=== PATIENT | female | born 1965 | race Caucasian/White ===

== ENCOUNTER 2017-04-02 17:06 | Emergency (ER) | payer OTHER ==
[~2017-04-02] VITALS: Ht 170.2 cm; Wt 83.9 kg
[~2017-04-02 17:06] MED LIST: ACETAMINOPHEN-1 EAC1 PO; AMOXICILLIN 50500 MG PO; AMOXICILLIN875 MG PO; AUGMENTIN 875875 MG PO; BACTRIM DS TAB1 EACH PO; BUTALB-APAP-CA1 EACH PO; CARAFATE 1 GM TA1 G1 PO; CEPHALEXIN 250250 M1 PO; CEPHALEXIN 500500 M3 PO; CIPRO500 MG PO; CIPROFLOXACIN500 M1 PO; CLEOCIN HCL300 MG PO; CLINDAMYCIN HC150 MG PO; DOXYCYCLINE 10100 MG PO; FIORICET 50-301 EACH PO; FLAGYL 250 MG250 MG PO; FLEXERIL PO; HIBICLENS118 ML TOP; HYDROCODONE-AP1 EAC6 PO; IBUPROFEN 600600 M1 PO; IBUPROFEN 800800 M1 PO; IMITREX 25 MG T25 M1 PO; KEFLEX500 M1; KEFLEX500 MG PO; LEVSIN PO; LEXAPRO 10 MG T10 M1 PO; LEXAPRO20 MG PO; MACROBID 100 M100 M1 PO; MEDROLDOSEPACK PO; MIRALAX255 GM PO; NAPROSYN500 M1 PO; NAPROSYN500 MG PO; NEURONTIN 300300 M1 PO; NOHOMEMEDICATIONS; NORCO 5-325 TA1 EAC1 PO; NORCO 5-325 TA1 EACH PO; PERCOCET 7.5-31 EACH PO; PHENAZOPYRIDIN200 M2 PO; PREDNISONE 10 M10 MG; PROMETHAZINE-P118 M1 PO; PROMETHAZINE12.5 M1 PO; PYRIDIUM200 MG PO; ROBAXIN 750 MG750 M1 PO; ROBAXIN500 MG PO; TOPAMAX 25 MG T25 M1 PO; TRAMADOL 50 MG50 MG PO; ULTRAM 50MG TAB50 MG PO; UNICOMPLEX M TA1 TA1 PO; VICOPROFEN 2001 EACH PO; VITAMIN D1000 UNI1; XANAX 1 MG TABLE1 MG PO; ZOFRAN ODT4 MG DISSOLVE; ZOFRAN ODT4 MG PO; ZOFRAN ODT4 MG SUBLING; ZOFRAN4 MG PO; ZOLOFT100 MG; [UNRECOGNIZED DRUG - OTHER] PO
[2017-04-02] MEDS ORDERED: CYMBALTA60 MG PO (17:22)
[2017-04-02 18:00] LABS: HCO3 22.6 mmol/L (22.0-26.0); PCO2 34.7 mmHg (35.0-45.0); PO2 87.4 mmHg (75.0-100.0); pH 7.432 (7.340-7.450)
[2017-04-02 18:01] LABS: ABSOLUTE BASOPHILS 0.1 thou/uL (0.0-0.2); ABSOLUTE EOSINOPHILS 0.2 thou/uL (0.0-0.7); ABSOLUTE LYMPHOCYTES 2.1 thou/uL (0.8-5.3); ABSOLUTE MONOCYTES 0.4 thou/uL (0.0-1.2); ABSOLUTE NEUTROPHILS 5.1 thou/uL (1.6-8.1); BASOPHILS 0.7 %; EOSINOPHILS 3.1 %; HEMATOCRIT 42.4 % (37.0-47.0); HEMOGLOBIN 14.5 gm/dL (12.0-15.0); LYMPHOCYTES 26.1 %; MCH 32.5 pg (26.0-34.0); MCHC 34.2 g/dL (28.0-37.0); MCV 94.9 fL (80.0-100.0); MONOCYTES 5.4 %; NUCLEATED RBCS 0 /100WBC; PLATELET COUNT* 191 thou/uL (150-400); POLYS 64.7 %; RBC 4.47 mil/uL (4.20-5.00); RDW-CV 12.9 % (10.5-14.5); WBC 7.9 thou/uL (4.0-11.0)
[2017-04-02 18:08] LABS: ANION GAP 5 mmol/L (7-16); BUN 14 mg/dL (7-18); CALCIUM 9.5 mg/dL (8.5-10.1); CHLORIDE 105 mmol/L (98-107); CO2 31 mmol/L (21-32); GLUCOSE 93 mg/dL (70-99); SODIUM 141 mmol/L (136-145)
[2017-04-02 18:13] LABS: ALBUMIN 3.4 g/dL (3.4-5.0); ALKALINE PHOSPHATASE 72 U/L (46-116); AMMONIA < 10 umol/L (11-32); SGOT 18 U/L (15-37); SGPT 26 U/L (30-65); TOTAL BILIRUBIN 0.4 mg/dL (<0.1-1.0); TOTAL PROTEIN 6.9 g/dL (6.4-8.2)
[2017-04-02 20:59] VITALS: BP 107/62
== END 2017-04-02 21:00 | disposition home or self-care (01) ==
LOC: M.ERS 17:06
PROVIDERS: Physician Assistant
DX: G43.909 Migraine, unspecified, not intractable, without status migrainosus (principal); F17.210 Nicotine dependence, cigarettes, uncomplicated; Z90.49 Acquired absence of other specified parts of digestive tract; Z90.710 Acquired absence of both cervix and uterus; Z85.841 Personal history of malignant neoplasm of brain; Z88.5 Allergy status to narcotic agent

== ENCOUNTER 2017-05-21 16:01 | Emergency (ER) | payer OTHER ==
[~2017-05-21] VITALS: Ht 175.3 cm; Wt 106.6 kg
[~2017-05-21 16:01] MED LIST changes: +CYMBALTA60 MG PO
[2017-05-21] MEDS ORDERED: COMPAZINE10 MG PO (16:19)
[2017-05-21] MEDS ORDERED: PROPRANOLOL 1010 MG PO (16:19)
[2017-05-21] MEDS ORDERED: NORCO 5-325 TA1 EACH PO (16:19)
[2017-05-21 17:03] LABS: ABSOLUTE BASOPHILS 0.1 thou/uL (0.0-0.2); ABSOLUTE EOSINOPHILS 0.3 thou/uL (0.0-0.7); ABSOLUTE LYMPHOCYTES 2.6 thou/uL (0.8-5.3); ABSOLUTE MONOCYTES 0.4 thou/uL (0.0-1.2); ABSOLUTE NEUTROPHILS 4.7 thou/uL (1.6-8.1); BASOPHILS 0.9 %; EOSINOPHILS 3.5 %; HEMATOCRIT 42.8 % (37.0-47.0); HEMOGLOBIN 14.8 gm/dL (12.0-15.0); LYMPHOCYTES 32.3 %; MCH 32.1 pg (26.0-34.0); MCHC 34.5 g/dL (28.0-37.0); NUCLEATED RBCS 0 /100WBC; PLATELET COUNT* 171 thou/uL (150-400); POLYS 58.3 %; WBC 8.1 thou/uL (4.0-11.0)
[2017-05-21 17:11] LABS: CALCIUM 9.6 mg/dL (8.5-10.1); CREATININE 0.9 mg/dL (0.6-1.3); POTASSIUM 4.8 mmol/L (3.5-5.1)
[2017-05-21 17:16] LABS: ALBUMIN 3.6 g/dL (3.4-5.0); TOTAL BILIRUBIN 0.4 mg/dL (<0.1-1.0); TOTAL PROTEIN 6.8 g/dL (6.4-8.2)
[2017-05-21] MEDS ORDERED: CLEOCIN HCL150 M1 PO (19:00)
[2017-05-21 19:08] VITALS: BP 98/66
== END 2017-05-21 19:10 | disposition home or self-care (01) ==
LOC: M.ERS 16:01
PROVIDERS: Nurse Practitioner Family
DX: S81.802A Unspecified open wound, left lower leg, initial encounter (principal); R60.0 Localized edema; G43.909 Migraine, unspecified, not intractable, without status migrainosus; F17.210 Nicotine dependence, cigarettes, uncomplicated; Z90.49 Acquired absence of other specified parts of digestive tract; Z90.710 Acquired absence of both cervix and uterus; Z85.841 Personal history of malignant neoplasm of brain; Z88.5 Allergy status to narcotic agent; X58.XXXA Exposure to other specified factors, initial encounter; Y93.89 Activity, other specified; Y92.89 Other specified places as the place of occurrence of the external cause; Y99.8 Other external cause status

== ENCOUNTER 2017-06-05 18:51 | Inpatient (IN) | payer OTHER ==
[~2017-06-05] VITALS: Ht 175.3 cm; Wt 99.8 kg
[~2017-06-05 18:51] MED LIST changes: +CLEOCIN HCL150 M1 PO; +COMPAZINE10 MG PO; +PROPRANOLOL 1010 MG PO
[2017-06-05 18:53] VITALS: BP 147/81
[2017-06-05 19:38] LABS: ABSOLUTE EOSINOPHILS 0.3 thou/uL (0.0-0.7); ABSOLUTE LYMPHOCYTES 3.4 thou/uL (0.8-5.3); ABSOLUTE MONOCYTES 0.6 thou/uL (0.0-1.2); ABSOLUTE NEUTROPHILS 3.4 thou/uL (1.6-8.1); BASOPHILS 0.3 %; EOSINOPHILS 3.5 %; HEMATOCRIT 48.1 % (37.0-47.0); HEMOGLOBIN 16.8 gm/dL (12.0-15.0); LYMPHOCYTES 43.9 %; MCH 31.9 pg (26.0-34.0); MCHC 34.9 g/dL (28.0-37.0); MCV 91.5 fL (80.0-100.0); MONOCYTES 7.7 %; MPV 8.2 fl. (7.2-11.1); NUCLEATED RBCS 0 /100WBC; PLATELET COUNT* 217 thou/uL (150-400); POLYS 44.6 %; RBC 5.26 mil/uL (4.20-5.00); RDW-CV 13.9 % (10.5-14.5); WBC 7.7 thou/uL (4.0-11.0)
[2017-06-05 19:43] LABS: ANION GAP 13 mmol/L (7-16); BUN 14 mg/dL (7-18); CALCIUM 10.4 mg/dL (8.5-10.1); CHLORIDE 105 mmol/L (98-107); CO2 25 mmol/L (21-32); GLUCOSE 108 mg/dL (70-99); POTASSIUM 3.7 mmol/L (3.5-5.1); SODIUM 143 mmol/L (136-145)
[2017-06-05 19:49] LABS: INR 1.1; PROTIME 10.6 Seconds (9.20-11.50)
[2017-06-05 20:17] LABS: ALKALINE PHOSPHATASE 106 U/L (46-116); LIPASE 87 U/L (73-393); NT-PRO BRAIN NAT PEPTIDE 25 pg/mL (<300); SGOT 19 U/L (15-37); SGPT 27 U/L (30-65); TOTAL BILIRUBIN 0.4 mg/dL (<0.1-1.0); TROPONIN-I LEVEL <0.06 ng/mL (<0.06)
[2017-06-05 22:48] VITALS: BP 118/78
[2017-06-06 03:17] VITALS: BP 119/95
[2017-06-06 04:23] LABS: HEMATOCRIT 40.5 % (37.0-47.0); MCH 31.5 pg (26.0-34.0); MCHC 34.3 g/dL (28.0-37.0); MPV 8.1 fl. (7.2-11.1); RBC 4.41 mil/uL (4.20-5.00); RDW-CV 13.9 % (10.5-14.5); WBC 5.4 thou/uL (4.0-11.0)
[2017-06-06 04:47] LABS: ALBUMIN 3.1 g/dL (3.4-5.0); CALCIUM 9.5 mg/dL (8.5-10.1); CREATININE 0.9 mg/dL (0.6-1.3); POTASSIUM 3.5 mmol/L (3.5-5.1); TOTAL BILIRUBIN 0.4 mg/dL (<0.1-1.0); TOTAL PROTEIN 5.8 g/dL (6.4-8.2)
--- NOTE | 2017-06-06 04:56 | NUR ---
PT ARRIVED ON 3W FORM ER VIA STRETCHERAT 0715. ASSISTED TO ROOM ORIENTED TO SURROUNDINGS. VS AND ASSESSMENT STABLE. PT PLACED ON CONTACT PRECAUTIONS UNTIL C DIFF CAN BE RULED OUT. PT SLEPT UNTIL 230 AND THEN ASKED FOR PAIN MEDICATION. PT DIDNT HAVE ORDERS FOR PAIN MEDS PAGED DR CANTRELL OBTAINED ORDERS FOR TRAMADOL AND GAVE TO PT. NO FURTHER COMPLAINTS. WILL CONTINUE PLAN OF CARE
[2017-06-06 04:58] LABS: HEMOGLOBIN 13.9 gm/dL (12.0-15.0)
[2017-06-06 08:50] VITALS: BP 85/65
--- NOTE | 2017-06-06 11:02 | EKG ---
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 <ELECTRONICALLY SIGNED> By: Sonido Rocha MD, [facility] 06/06/17 1102 00 00 Sonido Rocha MD, FAC /EPI
--- NOTE | 2017-06-06 11:02 | EKG ---
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 : 1965 Requested By: Trang Wright Order Number: [id number] MD: Sonido Rocha Measurements Intervals [place] Rate: 74 P: 65 NM: 182 QRS: 52 QRSD: 96 T: 79 QT: 537 QTc: 596 Interpretive Statements Sinus rhythm RSR' in V1 or V2, probably normal variant Prolonged QT interval Baseline wander in lead(s) II,III,aVL,aVF,V1,V2,V3,V4,V5,V6 Compared to ECG 08/28/2016 13:24:31 RSR' in V1 or V2 now present Prolonged QT interval now present Sinus tachycardia no longer present Inferior Q waves no longer present Q waves no longer present Electronically Signed On 3-30-2018 11:02:34 CDT by Sonido Rocha [email or web address] <ELECTRONICALLY SIGNED> By: Sonido Rocha MD, [facility] 06/06/17 1102 99 99 Sonido Rocha MD, [facility] /EPI
--- NOTE | 2017-06-06 16:44 | NUR ---
MET WITH PT TO DISCUSS HOME SITUATION/DC PLANNING. PT LIVES ALONE IN [facility]. HER DTR AND MOTHER ARE SUPPORTIVE. PT STATES SHE HAS HAD SEVERAL 'HEALTH ISSUES' RECENTLY AND HAS HAD HH WITH [facility]. SHE THINKS THEY HAVE DISMISSED HER BUT SHE WOULD LIKE TO HAVE THEM AGAIN [facility]. CALL PLACED BUT THEY WERE ON THEIR ANSWERING SERVICE. WILL ASK DR SEYMOUR: ORDER AT [facility]. PT USES NO EQUIPMENT. HER MOTHER DOES HER SHOPPING FOR HER WEEKLY AND HELPS WITH CLEANING. WILL FOLLOW [facility] [phone] FAX [phone]
[2017-06-06 17:08] VITALS: BP 129/66
--- NOTE | 2017-06-06 18:28 | NUR ---
PATIENT IS ALERT AND ORIENTED TODAY VERY PLEASANT UP AD SY IN ROOM. VITAL SIGNS STABLE ON ROOM AIR. SOME COMPLAINTS OF PAIN THAT IS CONTROLLED WITH ORAL PAIN MEDICATIONS. CALL LIGHT IS IN REACH, WILL CONTINUE TO MONITOR.
[2017-06-06 23:50] VITALS: BP 130/82
--- NOTE | 2017-06-07 05:15 | NUR ---
ASSESSMENT COMPLETE. PT SLEPT MOST OF THE NIGHT. PT GIVEN PRN PAIN MEDICATION ONCE. PT DID NOT HAVE ANY STOOLS DURING THE NIGHT. PT HAS IV FLUIDS INFUSING. PT IS ON ROOM AIR WITH ADEQUATE SATS. PT DENIES N/V. PT IS TOLERATING CLR LIQUID DIET. PT IS UP AD SY WITH STEADY GAIT. SEE ASSESSMENT AND VITALS FOR OTHER DETAILS. CALL LIGHT WITHIN REACH, WILL CONTINUE PLAN OF CARE
[2017-06-07 08:00] VITALS: BP 131/77
[2017-06-07] MEDS ORDERED: FLAGYL500 MG PO (15:33)
[2017-06-07 15:34] VITALS: BP 131/77
--- NOTE | 2017-06-07 17:27 | NUR ---
PT DISCHARGING HOME WITH DAUGHTER IV DISCONTINUED SWAB OF WOUND DONE AND SENT TO THE LAB PT TO FOLLOW UP NO PAIN OR CONCERNS PAPERWORK GIVEN AND SIGNED
== END 2017-06-07 17:47 | disposition home or self-care (01) | DRG 603 ==
LOC: M.ERS 18:51 → M.TBA-ER 21:55 → M.3W 21:55
PROVIDERS: Emergency Medicine; ADMIT Internal Medicine
DX: L03.116 Cellulitis of left lower limb (principal); E44.1 Mild protein-calorie malnutrition; A08.4 Viral intestinal infection, unspecified; G43.909 Migraine, unspecified, not intractable, without status migrainosus; F17.210 Nicotine dependence, cigarettes, uncomplicated; R41.3 Other amnesia; R07.9 Chest pain, unspecified; Z88.8 Allergy status to other drugs, medicaments and biological substances; Z79.899 Other long term (current) drug therapy; Z98.51 Tubal ligation status; Z90.89 Acquired absence of other organs; Z90.49 Acquired absence of other specified parts of digestive tract; Z90.710 Acquired absence of both cervix and uterus; Z83.6 Family history of other diseases of the respiratory system

== ENCOUNTER 2018-01-28 20:00 | Emergency (ER) | payer OTHER ==
[~2018-01-28] VITALS: Ht 154.9 cm; Wt 95.3 kg
[~2018-01-28 20:00] MED LIST changes: +FLAGYL500 MG PO
[2018-01-28 20:45] LABS: ABSOLUTE BASOPHILS 0.1 thou/uL (0.0-0.2); ABSOLUTE EOSINOPHILS 0.2 thou/uL (0.0-0.7); ABSOLUTE LYMPHOCYTES 2.8 thou/uL (0.8-5.3); ABSOLUTE MONOCYTES 0.4 thou/uL (0.0-1.2); ABSOLUTE NEUTROPHILS 3.2 thou/uL (1.6-8.1); BASOPHILS 1.3 %; EOSINOPHILS 2.8 %; HEMATOCRIT 43.6 % (37.0-47.0); HEMOGLOBIN 15.2 gm/dL (12.0-15.0); LYMPHOCYTES 42.1 %; MCH 31.8 pg (26.0-34.0); MCHC 34.8 g/dL (28.0-37.0); MCV 91.3 fL (80.0-100.0); MONOCYTES 5.7 %; MPV 7.8 fl. (7.2-11.1); NUCLEATED RBCS 0 /100WBC; PLATELET COUNT* 189 thou/uL (150-400); POLYS 48.1 %; RBC 4.77 mil/uL (4.20-5.00); RDW-CV 13.4 % (10.5-14.5); WBC 6.7 thou/uL (4.0-11.0)
[2018-01-28 20:50] LABS: URINE BILIRUBIN NEGATIVE (Negative); URINE BLOOD NEGATIVE (Negative); URINE CLARITY CLEAR; URINE COLOR YELLOW; URINE GLUCOSE-RANDOM NEGATIVE (Negative); URINE KETONES NEGATIVE (Negative); URINE LEUKOCYTES-REFLEX NEGATIVE (Negative); URINE NITRITE-REFLEX NEGATIVE (Negative); URINE PROTEIN NEGATIVE (Negative); URINE UROBILINOGEN 0.2 E.U./dl (0.2-1.0)
[2018-01-28 20:52] LABS: CALCIUM 9.9 mg/dL (8.5-10.1); POTASSIUM 3.6 mmol/L (3.5-5.1)
[2018-01-28 20:57] LABS: ALBUMIN 3.6 g/dL (3.4-5.0); TOTAL BILIRUBIN 0.3 mg/dL (<0.1-1.0)
[2018-01-28 22:36] LABS: CSF GLUCOSE 56 mg/dl (40-70); CSF PROTEIN 38.3 mg/dl (15-45)
[2018-01-28 22:50] LABS: CSF CLARITY CLEAR; CSF COLOR COLORLESS; VOLUME 11.5 ml
[2018-01-28 22:52] LABS: CSF POLYS 0 % (0-6); CSF RBC 0 /mm3; CSF WBC 2 /mm3 (0-10)
[2018-01-28] MEDS ORDERED: HYDROCODONE-AP1 EAC6 PO ×2 (23:07→23:08)
[2018-01-28] MEDS ORDERED: FLEXERIL PO (23:08)
[2018-01-28] MEDS ORDERED: IBUPROFEN 800800 M1 PO (23:08)
[2018-01-28 23:56] VITALS: BP 123/69
== END 2018-01-28 23:58 | disposition home or self-care (01) ==
LOC: M.ERS 20:00
PROVIDERS: Emergency Medicine Emergency Medical Services
DX: M43.6 Torticollis (principal); G43.909 Migraine, unspecified, not intractable, without status migrainosus; F17.210 Nicotine dependence, cigarettes, uncomplicated; Z88.6 Allergy status to analgesic agent; Z90.49 Acquired absence of other specified parts of digestive tract; Z98.890 Other specified postprocedural states; Z90.710 Acquired absence of both cervix and uterus

== ENCOUNTER 2018-03-12 23:22 | Emergency (ER) | payer OTHER ==
[~2018-03-12] VITALS: Ht 175.3 cm; Wt 102.1 kg
[2018-03-13 00:07] LABS: INFLUENZA A ANTIGEN None Detected (None Detect); INFLUENZA B ANTIGEN None Detected (None Detect)
[2018-03-13] MEDS ORDERED: ACETAMINOPHEN-1 EAC1 PO (00:22)
[2018-03-13] MEDS ORDERED: IBUPROFEN 800800 MG PO (00:22)
[2018-03-13] MEDS ORDERED: TESSALON PERLE100 MG PO (00:23)
[2018-03-13 00:31] VITALS: BP 118/81
== END 2018-03-13 00:31 | disposition home or self-care (01) ==
LOC: M.ERS 23:22
PROVIDERS: Emergency Medicine
DX: R07.81 Pleurodynia (principal); R05 Cough

== ENCOUNTER 2018-12-02 20:08 | Emergency (ER) | payer OTHER ==
[~2018-12-02] VITALS: Ht 175.3 cm; Wt 90.7 kg
[~2018-12-02 20:08] MED LIST changes: +IBUPROFEN 800800 MG PO; +TESSALON PERLE100 MG PO
[2018-12-02 20:41] LABS: ABSOLUTE BASOPHILS 0.1 thou/uL (0.0-0.2); ABSOLUTE EOSINOPHILS 0.2 thou/uL (0.0-0.7); ABSOLUTE LYMPHOCYTES 2.4 thou/uL (0.8-5.3); ABSOLUTE MONOCYTES 0.4 thou/uL (0.0-1.2); ABSOLUTE NEUTROPHILS 4.9 thou/uL (1.6-8.1); EOSINOPHILS 2.5 %; HEMATOCRIT 45.9 % (37.0-47.0); HEMOGLOBIN 16.1 gm/dL (12.0-15.0); LYMPHOCYTES 30.1 %; MCH 32.4 pg (26.0-34.0); MCV 92.7 fL (80.0-100.0); MONOCYTES 4.8 %; NUCLEATED RBCS 0 /100WBC; PLATELET COUNT* 198 thou/uL (150-400); POLYS 61.6 %; RBC 4.95 mil/uL (4.20-5.00); RDW-CV 13.8 % (10.5-14.5)
[2018-12-02 20:51] LABS: CALCIUM 10.4 mg/dL (8.5-10.1); CREATININE 0.9 mg/dL (0.6-1.3); POTASSIUM 3.8 mmol/L (3.5-5.1)
[2018-12-02 20:56] LABS: TOTAL BILIRUBIN 0.5 mg/dL (<0.1-1.0); TOTAL PROTEIN 7.8 g/dL (6.4-8.2)
[2018-12-02 22:22] VITALS: BP 120/80
== END 2018-12-02 22:23 | disposition home or self-care (01) ==
LOC: M.ERS 20:08
PROVIDERS: Family Medicine
DX: F41.0 Panic disorder [episodic paroxysmal anxiety] (principal); G43.909 Migraine, unspecified, not intractable, without status migrainosus; F17.210 Nicotine dependence, cigarettes, uncomplicated; Z90.710 Acquired absence of both cervix and uterus; Z90.49 Acquired absence of other specified parts of digestive tract